=== PATIENT | female | born 1990 | race African-American/Black ===

== ENCOUNTER 2020-02-04 21:12 | Observation (INO) | payer OTHER, SELFPAY ==
--- NOTE | 2020-02-05 08:25 | PM.OBTRLD ---
OB - Triage/Final Diagnosis Final Diagnosis (1) False labor: Code(s): O47.9 - False labor, unspecified Status: Acute
== END 2020-02-04 22:15 | disposition home or self-care (01) ==
PROVIDERS: Admitting Provider Obstetrics & Gynecology; Visit Provider Obstetrics & Gynecology
DX: O47.1 False labor at or after 37 completed weeks of gestation (principal); Z3A.37 37 weeks gestation of pregnancy
CPT/HCPCS: G0378; G0379

== ENCOUNTER 2020-02-05 08:22 | Observation (INO) | payer OTHER, SELFPAY ==
[2020-02-05 08:30] VITALS: BMI 33.7
[2020-02-05 09:46] VITALS: BP 109/66; PULSE 85
--- NOTE | 2020-02-05 10:05 | OBADM ---
This patient, Ofelia Collier, admitted to the OB room Labor/Delivery/Recovery 105 for observation. Patient/family oriented to hospital policies and general routines including ID bracelet, bed and alarms, visiting hours, pain management, procedures, bathroom and other care routines, personal items, smoking policy, room service/diet, and visiting hours. Patient/Family are encouraged to report perceived risks to care and to ask questions if they do not understand what they are told or what they should do.
--- NOTE | 2020-02-05 16:03 | PM.OBTRLD ---
OB - Triage/Final Diagnosis Evaluation Vital signs: Vital Signs - 24 hr 02/05/20 09:46 Pulse Rate 85 Blood Pressure 109/66 Final Diagnosis (1) False labor: Code(s): O47.9 - False labor, unspecified Status: Acute
== END 2020-02-05 10:20 | disposition home or self-care (01) ==
PROVIDERS: Admitting Provider Obstetrics & Gynecology; Visit Provider Obstetrics & Gynecology
DX: O47.1 False labor at or after 37 completed weeks of gestation (principal); Z3A.37 37 weeks gestation of pregnancy
CPT/HCPCS: G0378; G0379

== ENCOUNTER 2020-02-06 06:00 | Inpatient (IN) | payer OTHER, SELFPAY ==
[2020-02-06] VITALS (12 sets, daily range): BP systolic 113–124; BP diastolic 62–82; PULSE 68–122; RESP 16–17; TEMP 36.7; O2SAT 100; BMI 33.7
[2020-02-06] MEDS: LACTATED RINGERS 1,000 ML 125 ML IV CONT ×2 (06:23→06:35)
[2020-02-06 06:24] LABS: Basophils Percent Auto 0.3 % (0.2-1.2); Eosinophils Percent Auto 0.1 % (0-4.4); Hematocrit 35.6 % (37.0-47.0); Hemoglobin 11.8 g/dL (12.0-15.0); Immature Granulocyte Absolute 0.04 K/mm3 (0.00-0.031); Immature Granulocyte Percent A 0.5 % (0-0.5); Lymphocytes Absolute Auto 2.18 K/mm3 (0.9-3.2); Lymphocytes Percent Auto 28.8 % (18.3-44.2); Mean Corpuscular HGB Conc 33.1 g/dl (32-36); Mean Corpuscular Hemoglobin 27.5 pg (26-34); Mean Platelet Volume 12.2 fl (7.4-10.4); Monocytes Absolute Auto 0.8 K/mm3 (0.1-0.6); Neutrophils Absolute Auto 4.6 K/mm3 (1.3-6.7); Neutrophils Percent Auto 60.3 % (45.5-73.1); Platelet Count Result 150 k/mm3 (150-375); Red Blood Count 4.29 M/mm3 (4.2-5.4); Red Cell Distribution Width 14.1 % (11.5-14.5); White Blood Count 7.6 K/mm3 (4.5-10.0)
--- NOTE | 2020-02-06 06:30 | LDADM ---
This patient, Ofelia Collier, was admitted to Labor/Delivery/Recovery 105 on 02/06/20 at 06:00. Plans for labor, pain management and were discussed with patient. Patient/family oriented to hospital policies and general routines including ID bracelet, bed and alarms, visiting hours, pain management, procedures, bathroom and other care routines, personal items, smoking policy, room service/diet and guest tray routines, infant security routines, call light, and visiting hours. Patient/Family are encouraged to report perceived risks to care and to ask questions if they do not understand what they are told or what they should do. See OBIX for further documentation.
[2020-02-06 06:57] LABS: Rapid Plasma Reagin Non-Reactive (NonReactive)
[2020-02-06] MEDS: IBUPROFEN 600 MG TABLET PO ×2 (08:04→20:49)
--- NOTE | 2020-02-06 10:09 | OBPPTRN ---
Patient transferred to post room # via wheelchair. Oriented to unit, room, information board, rooming in, admission packet and security measures. Patient verbalizes understanding.
--- NOTE | 2020-02-06 10:58 | OP_ITS ---
DATE OF PROCEDURE: 02/06/2020 PROCEDURE: Normal spontaneous vaginal delivery. PRE-DELIVERY DIAGNOSES: 1. Thirty eight-week term gestation. 2. Spontaneous rupture of membranes. 3. Active labor. POST-DELIVERY DIAGNOSES: 1. Thirty eight-week term gestation. 2. Spontaneous rupture of membranes. 3. Active labor. 4. Normal spontaneous vaginal delivery. ANESTHESIA: None. ESTIMATED BLOOD LOSS: 200mls. FINDINGS: 1. Single live female born on February 06, 2018, at 06:52 a.m. Weight 6 pounds 6 ounces, 9 and 9. 2. First-degree laceration, no repair needed, hemostatic. COMPLICATIONS: None apparent. BRIEF HISTORY: A 29-year-old G3, P2, initially presented to Labor and Delivery with reports of leaking of fluid since 05:30 this morning and contractions increasing in frequency and intensity. DESCRIPTION OF PROCEDURE: Once the patient was noted to be complete, the labor bed was broken down and the patient's legs were placed in stirrups for support with maternal efforts and contractions, the presented in OA position. The head was delivered. No nuchal cord was noted and then, the anterior shoulder and the posterior shoulders were delivered without incident followed by the rest of the body. Delayed cord clamping of approximately 1 minute was performed after the cord was clamped and cut, the was passed off to the mother. Cord gases were collected. Placenta was delivered. Fundal massage applied. The fundus was noted to be firm. Bleeding noted to be minimal. Exam performed to identify any lacerations. A first-degree laceration was noted. Perineal laceration was noted. Hemostasis obtained by pressure. The patient tolerated the procedure well. All instrument and sponge counts were correct at the end of the procedure and the patient is resting in the labor room. D I MT: Mandi EDUARDO
--- NOTE | 2020-02-06 11:13 | HP_ITS ---
DATE OF SERVICE: 02/06/2020 CHIEF COMPLAINT: Leaking of fluid and contractions. HISTORY OF PRESENT ILLNESS: A 29-year-old, G3, P2, at 38 weeks and 0 days gestation, initially presented to Labor and Delivery with reports of leaking of fluid since about 5:30 this morning with contractions as well. Contractions are frequent and painful. Otherwise, she denies any headaches, blurred vision, nausea, vomiting, diarrhea, constipation, dysuria, vaginal irritation. PAST MEDICAL HISTORY: None. PAST SURGICAL HISTORY: None. FAMILY HISTORY: Noncontributory. MEDICATIONS: vitamins. ALLERGIES: NO KNOWN DRUG ALLERGIES. OBSTETRICAL HISTORY: G3, P2 with 2 previous vaginal deliveries. REVIEW OF SYSTEMS: 10-point review of systems completed. Pertinent positives and negatives as per the HPI. PHYSICAL EXAMINATION: GENERAL: Visibly uncomfortable with her contractions, otherwise alert and oriented x3. PSYCHIATRIC: Appropriate mood and affect. RESPIRATORY: Nonlabored. CARDIOVASCULAR: Regular rate. ABDOMEN: Gravid, soft. CERVICAL: Initially about 4 cm when presenting to triage, now she is complete dilation. REVIEW OF INVESTIGATIONS: GBS negative. ASSESSMENT: 1. Thirty-eight week term gestation. 2. Spontaneous rupture of membranes. 3. Active labor. PLAN: Admit to Labor and Delivery and anticipate vaginal delivery. D I MT: Mandi
--- NOTE | 2020-02-06 12:05 | PC.NURSE ---
Consulted with patient, Mother reports this is third child to breastfeed. Mother states is easily awoken and eager to feed. Mother denies difficulties or discomfort with feeding. Reviewed feeding cues, frequencies, duration of feedings, feeding elimination flow sheet, and signs of adequate intake. Reviewed positioning/alignment, holding breast, signs of a correct latch, effective nursing and suck swallow ratio. Mother reports infant was able to maintain latch without discomfort to mother. Nipple care reviewed. Instructed mother to call out for RN assistance if she is unable to latch for feeding or she has discomfort with nursing. Instructed feeding should be initiated three hours from start of last feeding or if feeding cues are noted before. Mother voiced understanding of information shared. Reviewed transition to breast milk, signs of adequate intake, and engorgement/relief. Instructed to call ICP if intake/output less than required. Reviewed regular medications mother is taking. Information provided per Aaliyah. Reviewed community resources on the [facility] website and in the Mom/Baby guide. Information on outpatient services provided. Mother has no further questions at this time.
[2020-02-06] MEDS: ACETAMINOPHEN 325 MG TABLET 650 MG PO (13:27)
[2020-02-07 05:58] LABS: Hematocrit 36.2 % (37.0-47.0); Hemoglobin 11.8 g/dL (12.0-15.0)
--- NOTE | 2020-02-07 07:55 | PC.NURSE ---
PT introductions made and plan of care discussed per post , pain management, breast feeding, daily care activities and pending discharge to home. PT verbalized understanding of such care.
--- NOTE | 2020-02-07 08:01 | PM.DS ---
DS: Diagnosis Discharge Diagnosis (1) (normal spontaneous vaginal delivery): Code(s): O80 - Encounter for full-term uncomplicated delivery Status: Acute DS: Summary Hospital Course Reason for hospitalization: Active labor Hospital Course: Admitted for onset of labor and spontaneous rupture of membranes. Delivery was uncomplicated. Progressed as expected . Pain is well controlled, lochia decreasing. No issues Status at Discharge Overall status at discharge: patient is progressing back to baseline Time Spent with Patient Time attestation: Total time spent providing and/or coordinating discharge services: Exam Const: General: comfortable and no acute distress Resp: Effort & Inspection: normal respiratory effort Cardio: Rate: regular rate GI: Inspection: non-distended GI Palp: Yes Soft to palpation, No Tenderness to palpation present (GI) and No Guarding due to palpation present (GI) Psych: Appearance: grossly normal Mental Status: mental status grossly normal Speech and movement: Normal speech and movement present Thought content: Yes Normal thought content present DS: Data Data Completed and Pending Labs on day of discharge: Labs from last 24 hours 02/07/20 05:23 Hgb 11.8 L Hct 36.2 L Discharge Plan Discharge Attending physician on discharge: Kevin Chinchilla Discharging Clinician: Kevin Chinchilla Patient Disposition: Home, Self-Care Activity: as tolerated Diet: regular Patient Instructions: Antibiotic Form Stand Alone Forms: General Discharge Information Follow-up/Referrals: Kevin Chinchilla DO [Physician] - Discharge Medications: New docusate sodium 100 mg Capsule 100 mg PO BID PRN (Reason: Constipation) Qty: 60 RF: 0 ibuprofen 600 mg Tablet 600 mg PO Q6H PRN (Reason: Cramping) Qty: 90 RF: 0 Continued PNV cmb#95-ferrous fumarate-FA [] 28 mg iron- 800 mcg Tablet 1 tablet PO DAILY RF: 0 Date of admission: 02/06/20 06:00 Primary Care Provider: UNKNOWN,DOCTOR Admitting Provider: Kevin Chinchilla Attending physician on admission: Kevin Chinchilla
[2020-02-07 10:30] VITALS: BP 112/73; PULSE 82; RESP 18; TEMP 37.3; O2SAT 100
[2020-02-07] MEDS: MULTIVIT/MIN/PREN/FOL AC/IRON TABLET 1 TAB PO (10:35)
[2020-02-07] MEDS: IBUPROFEN 600 MG TABLET PO (10:35)
[2020-02-07] MEDS: DOCUSATE SODIUM 100 MG CAPSULE PO (10:36)
--- NOTE | 2020-02-07 12:45 | PC.NURSE ---
PT received discharge instructions per protocol and verbalized understanding of such care.
--- NOTE | 2020-02-07 13:25 | PC.NURSE ---
PT discharged to home ambulatory accompanied by sister and and taken to waiting car. Follow up appts confirmed
== END 2020-02-07 13:25 | disposition home or self-care (01) | DRG 560 ==
LOC: ANHLDR 06:11 → ANHOB2 10:15
PROVIDERS: Admitting Provider Obstetrics & Gynecology; Visit Provider Obstetrics & Gynecology
DX: O70.0 First degree perineal laceration during delivery (principal); Z3A.38 38 weeks gestation of pregnancy; Z37.0 Single live birth; Z23 Encounter for immunization
CPT/HCPCS: 36415; 85014; 85018; 85025; 86592; 86850; 86900; 86901; A9270; J2590; J2795; J7120

== ENCOUNTER 2021-12-26 09:25 | Outpatient (CLI) | payer OTHER, SELFPAY ==
--- NOTE | ~2021-12-26 | US_ITS ---
EXAMINATION: US OB <= 14 weeks fetus DATE: 12/26/2021 10:28 INDICATION: Assess dating and viability of first trimester . TECHNIQUE: Real-time pelvic ultrasound utilizing transabdominal probe was performed. The nuha guillaume radiologist was not present for the study. COMPARISON: None. FINDINGS: The uterus measures 14.0 x 8.0 x 9.7 cm. There is an intrauterine gestational sac. A yolk sac and fe nestor pole are identified. The crown rump length measures 3.8 cm, which correlates with an estimated ge stational age of 10 weeks and 5 days. heart motion is identified measuring 140 beats per minute (bpm) by M-mode Doppler. The right ovary measures 3.3 x 1.3 x 1.4 cm. The left ovary measures 4.1 x 1.9 x 1.8 cm. 1 cm corpus luteum cyst in the left ovary. There is no free fluid in the pelvis. IMPRESSION: 1. Single living fetus with heart rate of 140 bpm. 2. Gestational age by ultrasound of 10 weeks 5 day(s) +/- 7 day(s) with ultrasound estimated date of delivery (RAKESH) of 07/19/2022. Reviewed, dictated and finalized at location A. [employer] PROJECT MANAGER IMPRESSION: 1. Single living fetus with heart rate of 140 bpm. 2. Gestational age by ultrasound of 10 weeks 5 day(s) +/- 7 day(s) with ultras ound estimated date of delivery (RAKESH) of 07/19/2022.
== END 2021-12-26 09:26 | disposition home or self-care (01) ==
LOC: ANHIMG 09:27
PROVIDERS: Visit Provider Obstetrics & Gynecology
DX: Z36.9 Encounter for antenatal screening, unspecified (principal); Z3A.10 10 weeks gestation of pregnancy
CPT/HCPCS: 76801

== ENCOUNTER 2022-02-28 15:44 | Outpatient (CLI) | payer OTHER, SELFPAY ==
--- NOTE | ~2022-02-28 | US_ITS ---
EXAMINATION: US OB /maternal detail EXAM DATE: 02/28/2022 16:46 INDICATION: anatomy. 2nd trimester. TECHNIQUE: Pelvic obstetrical transabdominal sonogram was performed by a technologist. There are mu ltiple grayscale and Doppler images available for interpretation. FINDINGS: There is a single fetus identified in breech presentation with a heart rate of 157 beats pe r minute. The placenta is located in the posterior position, and there may be an anterior myometrial contraction captured on some of the images. Placental margin to internal cervical os distance is 2.3 cm. There is no sonographic evidence of retroplacental hemorrhage identified. There is subjectively expected amount of amniotic fluid. BIOMETRIC DATA: Biparietal diameter (BPD): 4.4 cm ----------------> 19 weeks 1 day. Head circumference (HC): 17.4 cm ----------------> 19 weeks 6 days. Abdominal circumference (AC): 14.5 cm ----------> 19 weeks 6 days. Femur length (FL): 3.2 cm --------------------------> 20 weeks 0 days. These measurements are concordant. HC/AC ratio is 1.20 (The 5th -- 95th percentile range is 1.08-1.26. Estimated weight is 318 g +/- 48 g. This is the 46th percentile when the currently reported cl inical gestation age 19 weeks 6 days, clinical estimated date of delivery (RAKESH-OPE) 07/19 is used. Fet al estimated gestational age based on measurements from this exam is 19 weeks 5 days, with an estimat ed date of delivery (RAKESH-AUA) 07/20. ANATOMIC SURVEY: The following anatomy is identified and is sonographically normal in appearance: Cerebral ventricles Cavum septum pellucidum Cerebellum Cisterna magna Nuchal fold CTL-spine Four-chamber heart Cardiac outflow tracts Diaphragm Stomach Kidneys Bladder Three-vessel cord Cord insertion Extremities Nose/lips IMPRESSION: 1. Single fetus in breech presentation with heart rate 157 beats per minute. 2. Estimated weight of 318 grams, 46 percentile using the currently reported clinical gestatio n age of 19 weeks 6 days, RAKESH(OPE) 07/19. 3. Normal anatomic survey. Reviewed, dictated and finalized at location A. IMPRESSION: 1. Single fetus in breech presentation with heart rate 157 beats per minute. 2. Estimated weight of 318 grams, 46 percentile using the currently repo rted clinical gestation age of 19 weeks 6 days, RAKESH(OPE) 07/19. 3. Normal anatomic survey.
== END 2022-02-28 15:45 | disposition home or self-care (01) ==
LOC: ANHIMG 15:45
PROVIDERS: Visit Provider Obstetrics & Gynecology
DX: Z36.3 Encounter for antenatal screening for malformations (principal); Z3A.00 Weeks of gestation of pregnancy not specified
CPT/HCPCS: 76805

== ENCOUNTER 2022-04-30 22:27 | Observation (INO) | payer OTHER, SELFPAY ==
--- NOTE | 2022-04-30 22:50 | PC.NURSE ---
PT was sent from ER for back pain. she was not able to walk to bathroom due to back pain. Urine sample obtained, assisted pt to bed via wheelchair. pt states she was having back pain for few days but after she went to [employer] earlier today, back pain got more intense and right leg started to have pain. bilateral pedal pulse was palpated equally and negative Marilyn's sign. pt states she lifted few boxes at the [employer]. abdomen soft and no contractions noted. right side SVA tenderness was noted. encouraged PO hydration and will contact Dr. Huang with UA result.
[2022-04-30 22:53] VITALS: TEMP 36.3
[2022-04-30 22:57] VITALS: BP 114/65; PULSE 97
[2022-04-30 23:00] VITALS: BP 123/65; PULSE 98
[2022-04-30 23:07] VITALS: BMI 36.3
[2022-04-30 23:15] VITALS: BP 108/63; PULSE 93
[2022-04-30 23:20] LABS: Appearance Urine Clear (Clear); Bilirubin Urine Negative (Negative); Blood Urine Negative (Negative); Color Urine Yellow (Yellow); Glucose Urine UA Negative (Negative); Ketones Urine Trace mg/dL (Negative); Leukocyte Esterase Ur Negative LEU/UL (NEGATIVE); Nitrate Urine Negative (Negative); Protein Urine Negative (Negative); Specific Grav Ur >= 1.030 (1.001-1.035); Urobilinogen Urine 0.2 mg/dL (<2.0)
[2022-04-30 23:29] LABS: Bacteria Urine Trace /hpf; Mucus Urine Rare /lpf; Squamous Epithelial Cell Urine Many /hpf (Few)
--- NOTE | 2022-04-30 23:30 | PC.NURSE ---
called Dr. Huang and notified pt admission for back pain. reported positive CVA tenderness on right side, Negative UA result. made aware that pt states feels better after PO hydration but still has some uncomfortable back pain. Flexeril order was received. will continue to monitor.
[2022-04-30 23:32] LABS: Add Urine Microscopic? YES
[2022-04-30] MEDS: CYCLOBENZAPRINE HCL 10 MG TABLET PO (23:43)
--- NOTE | 2022-05-01 00:22 | PC.NURSE ---
pt states she feels better after medication and able to move right leg. called Dr. Huang reported status. discharge order received.
--- NOTE | 2022-05-25 11:41 | P.PNOB_ITS ---
OB - Triage/Final Diagnosis Visit Information Comments/Additional reasons for admission: I have assessed the risk for this patient, Ofelia Collier, and determined that she would benefit from observation care. Evaluation Laboratory results: Laboratory Tests 04/30/22 22:59 Urine Color Yellow Urine Appearance Clear Urine pH 6.0 Ur Specific [place] >= 1.030 Urine Protein Negative Urine Glucose (UA) Negative Urine Ketones Trace Ur Blood (Man) Negative Urine Nitrate Negative Urine Bilirubin Negative Urine Urobilinogen 0.2 Ur Leukocyte Esterase Negative Urine RBC 6-10 H Urine WBC 10-15 H Ur Squamous Epith Cells Many H Urine Bacteria Trace Urine Mucus Rare Final Diagnosis (1) Back pain affecting : Code(s): O99.891 - Other specified diseases and conditions complicating ; M54.9 - Dorsalgia, unspecified Status: Acute
== END 2022-05-01 00:35 | disposition home or self-care (01) ==
PROVIDERS: Admitting Provider Student in an Organized Health Care Education/Training Program; Visit Provider Student in an Organized Health Care Education/Training Program
DX: O26.899 Other specified pregnancy related conditions, unspecified trimester (principal); M54.50 Low back pain, unspecified; Z3A.00 Weeks of gestation of pregnancy not specified
CPT/HCPCS: 81001; 87086; 87088; A9270; G0378; G0379

== ENCOUNTER 2022-05-17 17:52 | Observation (INO) | payer OTHER, SELFPAY ==
[2022-05-17 18:01] VITALS: BP 127/65; PULSE 156
--- NOTE | 2022-05-17 18:01 | PC.NURSE ---
Repeat BP 127/65
[2022-05-17 18:04] VITALS: PULSE 95; O2SAT 100
--- NOTE | 2022-05-17 18:06 | PC.NURSE ---
1751- Pt brought in after having lost consciousness and fell in parking lot. Visitors who saw the pt fall reported she started having seizure like activity. When OB arrived in the parking lot, pt was laying on her right side and unresponsive. ED personnel were also present and a sternal rub caused pt to open her eyes and she mumbled. Eyelids noted to be fluttering. Carotid pulse was regular and strong. Pt placed on sheet and lifted onto stretcher and brought to OB. Dr. Arana was still on the unit and came into room 120 with us. 1753- monitor applied- FHT's 150. Pt breathing rapidly and difficult to trace heart rate due to rapid abdominal movement with respirations. Dannie Harrison RN talking with pt who now has her eyes open and is responding. Pt denies hx of seizure disorder. C/O chest discomfort. 1754- Initial BP 122/62 P 100; O2 sat 100%. Pt states she had been having light headedness, dizziness, SOB, and a headache that she was coming in to be evaluated for. 1756- 18 ga jelco placed in left forearm by Keira Ramos RN; blood work drawn. 1758- Dr. Huang called and informed of how this pt presented at approx 31 wks gestation and requested her to come now to evaluate pt. Since we have FHT's, Dr. Huang wants pt taken immediately to ED for evaluation. 1800- Called ED charge nurse and informed her Dr. Huang wants an immediate bed in the ED for the pt to be evaluated. Pt to be brought to room 112. 1805- Switched to portable monitor and pt taken to ED per stretcher. Dannie Sky RN staying with pt.
--- NOTE | 2022-05-17 18:07 | PC.NURSE ---
See V# [id number] for additional documentation in the ED.
--- NOTE | 2022-05-17 19:23 | WPDCN ---
Assessment and Plan Assessment and plan (1) Syncopal episodes: Code(s): R55 - Syncope and collapse Status: Acute Assessment and Plan: Work up to be done by ED Defer further management to ED physician at this time (2) Witnessed seizure-like activity: Code(s): R56.9 - Unspecified convulsions Status: Acute Assessment and Plan: see above (3) 31 weeks gestation of : Code(s): Z3A.31 - 31 weeks gestation of Status: Acute Assessment and Plan: From an obstetric standpoint, patient currently stable Reassuring status Contractions spaced out on toco BP and rest of vitals WNL Continuous EFM and toco for now Plan Plan discussed with Dr. Vásquez Patient will require telemetry, neurology work up, as well as continuous monitoring for further evaluation Combined services unavailable at [place] Plan is to transfer to [facility] for these services Patient made aware of plan All questions and concerns addressed Reassurance provided HPI Data of Consult Date/Time: 05/17/22 19:23 Requesting Physician: Brigitte Huang MD Primary Care Provider: CHANNEL ROUGHER PHYSICIAN Consult Narrative Narrative: Ofelia Collier is a 31 year old female LMP 10/12/2021 currently 31w gestation with RAKESH 07/19/22 who presented to ED following a witnessed syncopal event. Patient is dated by LMP c/w US on 12/26/21 at 10w gestation. has been uncomplicated thus far. Denies history of seizure disorder. Patient reports decreased appetite for past few days and not feeling her best. Reports decrease PO intake. Today, she reported dizziness, lightheadedness, as well as a headache and chest pain. She also reported SOB that worsened throughout the day, prompting patient to drive herself to the hospital for further evaluation. Upon exiting her car, patient states that she remembers trying to walk towards the hospital before everything went black. Patient's fall and subsequent seizure activity was witnessed by two hospital visitors who were also in the parking lot. It appears that patient fell backwards and did not fall onto abdomen. L&D as well as ED staff responded to incident. Patient was taken to L&D and then subsequently transported to the ED for further evaluation. Upon my arrival, patient was awake, however, appropriately anxious. She reports a headache and occipital pain and spots in her vision. She also reports chest pain and persistent SOB. She reports lower abdominal/pelvic pain for past few days as well as occasional contractions. Denies any vaginal bleeding or leakage of fluid. Reports good movement. Review of Systems Review of Systems: All systems reviewed & are unremarkable except as noted in HPI and below Constitutional: Constitutional: Reports as per HPI, Reports no additional constitutional complaints and Reports poor appetite Eyes: Eyes: Reports as per HPI, Reports no additional eye complaints and Reports floaters ENT: Reports system reviewed and no additional complaints, except as documented, Reports as per HPI, Reports dizziness and Reports headache(s) Cardiovascular: Cardiovascular: Reports as per HPI, Reports no additional cardiovascular complaints, Reports chest pain, Reports syncope, Reports lightheadedness and Reports dyspnea Respiratory: Respiratory: Reports as per HPI, Reports no additional respiratory complaints and Reports dyspnea Gastrointestinal: Gastrointestinal: Reports as per HPI and Reports no additional gastrointestinal complaints Genitourinary: Genitourinary: Reports no additional female genitourinary complaints, Reports as per HPI and Reports pelvic pain Musculoskeletal: Musculoskeletal: Reports no additional musculoskeletal complaints and Reports as per HPI Integumentary/Breasts: Skin/Breast: Reports system reviewed and no additional complaints, except as docu and Reports as per HPI Neurologic: Reports system reviewed a
== END 2022-05-17 18:08 ==
PROVIDERS: Admitting Provider Student in an Organized Health Care Education/Training Program; Visit Provider Student in an Organized Health Care Education/Training Program
DX: O26.893 Other specified pregnancy related conditions, third trimester (principal); R55 Syncope and collapse; R56.9 Unspecified convulsions; Z3A.31 31 weeks gestation of pregnancy
CPT/HCPCS: 99199

== ENCOUNTER 2022-05-17 18:14 | Emergency (ER) | payer OTHER, SELFPAY ==
[2022-05-17] VITALS (9 sets, daily range): BP systolic 105–135; BP diastolic 58–78; PULSE 89–92; RESP 16; TEMP 36.2; O2SAT 91–99
--- NOTE | ~2022-05-17 | CT_ITS ---
EXAMINATION: CT brain wo con DATE: 05/17/2022 19:35 INDICATION: syncope, head trauma . TECHNIQUE: Computed tomography (CT) of the head was performed without intravenous contrast. The mA wa s adjusted according to patient size. Iterative reconstruction technique was employed. The dose-lengt h product was 529.67 mGy-cm. COMPARISON: None FINDINGS: No acute intracranial hemorrhage or extra-axial fluid collection. No hydrocephalus, mass, or herniation. No acute ischemic infarct. Unremarkable dural venous sinus attenuation. No acute osseous abnormality. The aerated spaces are clear. IMPRESSION: No acute intracranial process. Reviewed, dictated and finalized at location K.
--- NOTE | ~2022-05-17 | CT_ITS ---
EXAMINATION: CTA chest PE protocol DATE: 05/17/2022 19:36 INDICATION: syncope, chest pain, dyspnea TECHNIQUE: Computed tomography angiography (CTA) of the chest was performed with 100 mL Omnipaque-350 intravenous contrast timed to evaluate the pulmonary arteries. Coronal maximum intensity projection 3D-reconstructions were created by the technologist. The dose-length product (DLP) was 745.58 mGy-cm. Automated exposure control and iterative reconstruction technique were employed. COMPARISON: None. FINDINGS: Study quality: Degraded by late contrast phase, mild motion, and beam hardening such that subsegmenta l and non-occlusive segmental emboli could be missed. Pulmonary arteries: No pulmonary emboli detected. Thoracic aorta: Normal. Lung parenchyma and airways: Clear. Thoracic inlet, axillae and chest wall: Unremarkable. Mediastinum: Normal. Heart and pericardium: Normal. Coronary artery calcifications: Absent. Pleura: Unremarkable. Upper abdomen: No significant finding. Bones: No acute osseous finding. IMPRESSION: Exam limited as described above. Within those constraints, no central or occlusive segmental pulmonar y embolus is detected. Reviewed, dictated and finalized at location K. IMPRESSION: Exam limited as described above. Within those constraints, no central or occlus matt segmental pulmonary embolus is detected.
--- NOTE | 2022-05-17 18:17 | ECG_ITS ---
Measurements Intervals [place] Rate: 89 P: 65 MS: 177 QRS: 60 QRSD: 89 T: 16 QT: 341 QTc: 417 Interpretive Statements SINUS RHYTHM NORMAL ELECTROCARDIOGRAM NO PREVIOUS ECG AVAILABLE FOR COMPARISON Electronically Signed On 05-19-2022 16:00:50 CDT by Roni Gonzalez M.D.
--- NOTE | 2022-05-17 18:28 | ED.SYNCOPE ---
HPI - Syncope General Chief Complaint: Syncope Stated Complaint: Seizure Time Seen by Provider: 05/17/22 18:21 History of Present Illness HPI narrative: Patient is a 31-year-old female , currently 31 weeks , presenting to the emergency department for evaluation following a syncopal event with witnessed seizure activity. Patient reportedly has been having chest pain, shortness of breath, lightheadedness throughout the day today. She follows with Dr. Huang for this current , was presenting to OB labor and delivery for evaluation when she was witnessed to have a syncopal episode in the parking lot with seizure activity. Of note, one of our ER nurses responded to this outside, there were bystanders present, patient with generalized tonic-clonic activity. No urinary incontinence or tongue biting. Patient awakened, no prolonged confusion. Patient currently reporting headache pain, floaters in her visual field, frontal chest pain, shortness of breath, lower pelvic pain. Patient was initially taken for evaluation to labor and delivery where she was found to have no vaginal bleeding, no contraction-like pain, patient was placed on tocodynamometer monitoring and then transported to the emergency department for medical work-up and further evaluation. Related Data Home Medications Medication Instructions Recorded Confirmed prenat.vits,zack,[id number] 1 tablet PO DAILY 03/17/22 Allergies Allergy/AdvReac Type Severity Reaction Status Date / Time No Known Allergies Allergy Verified 05/17/22 18:16 Review of Systems Review of Systems: CONSTITUTIONAL: Denies fever, chills, or sweats. EYES: Reports visual floaters earlier in the day ENT: Denies rhinorrhea, congestion, sore throat, or otalgia. CARDIOVASCULAR: Reports chest pain without palpitations, denies leg edema RESPIRATORY: Denies cough, reports dyspnea GASTROINTESTINAL: Reports pelvic pain without upper abdominal pain, denies nausea or vomiting GENITOURINARY: Denies dysuria or hematuria. SKIN: Denies rash or itching. MUSCULOSKELETAL: Denies back pain, joint pain, or myalgia. NEUROLOGIC: Reports headache without focal weakness or numbness PMFSH Past Medical History Medical History Elective x1 Vaginal delivery x3 Surgical History Surgical History No pertinent past surgical history Family History Family History Sibling Asthma Grandparent Diabetes mellitus Hypertension Mother Hypertension Heart disease Other No pertinent family history Social History Social History Smoking status: Never smoker Substance use: never Gender identity (if verbalized by the patient): Female Spiritual care concerns: No Agree to blood products: Yes Course Vital Signs Vital signs: Vital Signs Temperature 36.2 C L 05/17/22 18:16 Pulse Rate 89 05/17/22 18:16 Respiratory Rate 16 05/17/22 18:16 Blood Pressure 129/68 05/17/22 18:16 Pulse Oximetry 98 05/17/22 18:16 Temperature 36.2 C L 05/17/22 18:16 Pulse Rate 89 05/17/22 18:45 Respiratory Rate 16 05/17/22 18:45 Blood Pressure 117/69 05/17/22 19:01 Pulse Oximetry 95 05/17/22 19:01 MDM - Syncope MDM Narrative Medical decision making narrative: Patient presenting for evaluation following witnessed syncopal episode versus seizure-like activity in the parking lot of the hospital. Patient initially taken to OB triage and then transported here for evaluation. At time of assessment, patient with multiple complaints of headache pain, chest pain, pelvic pain. Patient is on toco monitor with irritability type contractions. No vaginal bleeding or loss of fluids. [employer] Dr. Huang came to the emergency department to evaluate the patient, tiesha
[2022-05-17 18:48] LABS: Basophils Percent Auto 0.1 % (0.2-1.2); Eosinophils Percent Auto 0.4 % (0-4.4); Hematocrit 31.3 % (37.0-47.0); Hemoglobin 10.4 g/dL (12.0-15.0); Immature Granulocyte Absolute 0.04 K/mm3 (0.00-0.031); Immature Granulocyte Percent A 0.4 % (0-0.5); Lymphocytes Absolute Auto 2.67 K/mm3 (0.9-3.2); Lymphocytes Percent Auto 28.9 % (18.3-44.2); Mean Corpuscular HGB Conc 33.2 g/dl (32-36); Mean Corpuscular Hemoglobin 27.9 pg (26-34); Mean Corpuscular Volume 83.9 fl (80-100); Mean Platelet Volume 12.3 fl (7.4-10.4); Monocytes Absolute Auto 0.8 K/mm3 (0.1-0.6); Monocytes Percent Auto 9.1 % (2.6-8.5); Neutrophils Absolute Auto 5.7 K/mm3 (1.3-6.7); Neutrophils Percent Auto 61.1 % (45.5-73.1); Platelet Count Result 178 k/mm3 (150-375); Red Blood Count 3.73 M/mm3 (4.2-5.4); Red Cell Distribution Width 11.9 % (11.5-14.5); White Blood Count 9.3 K/mm3 (4.5-10.0)
[2022-05-17 18:59] LABS: Glucose Point of Care 79 mg/dl (65-105)
[2022-05-17 19:06] LABS: Alanine Aminotransferase 10 U/L (6-35); Albumin Level 3.6 g/dL (3.5-5.1); Alkaline Phosphatase 80 U/L (38-126); Anion Gap 6 mmol/L (8-16); Aspartate Amino Transferase 18 U/L (14-36); Bilirubin,Total 0.2 mg/dL (0.2-1.3); Blood Urea Nitrogen 6 mg/dL (7-17); Calcium 8.9 mg/dL (8.4-10.2); Carbon Dioxide 23 mmol/L (22-30); Chloride 109 mmol/L (98-107); Estimated CRCL calculation 168 ml/min; Estimated Glomerular Filt Rate > 60; Glucose 79 mg/dL (65-110); Magnesium 1.7 mg/dL (1.6-2.3); Potassium 3.7 mmol/L (3.4-5.0); Sodium 138 mmol/L (137-145); Uric Acid 2.9 mg/dL (2.5-7.5)
[2022-05-17] MEDS: LACTATED RINGERS 1,000 ML 999 ML IV CONT (19:07)
[2022-05-17 19:11] LABS: INR 1.1; Partial Thromboplastin Time 25.2 SECONDS (22.3-36.8); Partial Thromboplastin Time 25.7 SECONDS (22.3-36.8); Prothrombin Time 14.2 Seconds (11.1-14.7)
[2022-05-17 19:12] LABS: INR 1.1
[2022-05-17 19:16] LABS: NT Pro B Type Natriuretic Pept 26 pg/mL (5-100); Troponin I < 0.012 ng/mL (0.000-0.034)
[2022-05-17 19:36] LABS: Lactate Dehydrogenase 449 U/L (313-618)
[2022-05-17 20:05] LABS: Appearance Urine Slightly Cloudy (Clear); Bilirubin Urine Negative (Negative); Blood Urine Negative (Negative); Glucose Urine UA Negative (Negative); Ketones Urine Negative (Negative); Leukocyte Esterase Ur Negative LEU/UL (Negative); Nitrate Urine Negative (Negative); Protein Urine Negative (Negative); Urobilinogen Urine 0.2 mg/dL (<2.0)
[2022-05-17 20:08] LABS: Add Urine Microscopic? YES; Color Urine Light Yellow (Yellow)
[2022-05-17 20:14] LABS: Bacteria Urine Trace /hpf; Mucus Urine Rare /lpf; Squamous Epithelial Cell Urine Many /hpf (Few)
--- NOTE | 2022-05-17 21:57 | PC.NURSE ---
VELMA from [facility] Dr. Ace for 1 gram Tylenol IV
[2022-05-17] MEDS: MAGNESIUM SULF 4 GM/WATER100ML 4 GM/100 ML BAG IVPB (22:27)
[2022-05-17] MEDS: MAGNESIUM SULF 2 GM/WATER 50ML 2 GM/50 ML BAG IVPB (23:01)
--- NOTE | 2022-05-17 23:56 | PC.NURSE ---
1900 pt [place] every 1-7 minutes, duration 40-80 seconds, mild, palpates soft [address] off monitor [address] scan 193 pt back on monitor FHR 155 2 pt off monitor to use bathroom 1999 abdomen palpates soft, pt states she is still having mild contractions, TOCO reapplied 2026 Dr Huang at bedside, SVE done, pt closed 2100 pt having uterine irritability, palpates soft 2200 pt [place] 2-3 minutes, duration 50-90 seconds, mild, palpates soft 2300 pt [place] 5-7 minutes, duration 50-80 seconds, mild, palpates soft 2321 EMS arrived to patient room, pt taken off monitors and transferred to ambulance. FHT at this time are 145.
[2022-05-18 00:35] VITALS: BP 105/65; PULSE 78; RESP 18; O2SAT 98
--- NOTE | 2022-05-18 00:35 | PC.NURSE ---
Pt discharged w/ IV magnesium still running so it was not documented as finished in the MAR
== END 2022-05-17 23:20 | disposition short-term general hospital (02) ==
PROVIDERS: Emergency Provider Emergency Medicine
DX: O99.891 Other specified diseases and conditions complicating pregnancy (principal); R55 Syncope and collapse; R56.9 Unspecified convulsions; O99.283 Endocrine, nutritional and metabolic diseases complicating pregnancy, third trimester; E86.0 Dehydration; Z3A.31 31 weeks gestation of pregnancy
CPT/HCPCS: 36415; 70450; 71275; 80053; 81001; 82948; 83615; 83735; 83880; 84484; 84550; 85025; 85380; 85610; 85730; 86850; 86900; 86901; 93005; 96365; 96366; 96375; 99285; J0131; J3475; J7120; Q9967

== ENCOUNTER 2022-07-01 18:37 | Inpatient (IN) | payer OTHER, SELFPAY ==
[2022-07-01] VITALS (37 sets, daily range): BP systolic 81–131; BP diastolic 25–94; PULSE 75–107; TEMP 36.7–36.8; O2SAT 97–100; BMI 36.7
--- NOTE | 2022-07-01 18:37 | LDADM ---
This patient, Ofelia Collier, was admitted to Labor/Delivery/Recovery 105 on 07/01/22 at 18:37. Plans for labor, pain management and were discussed with patient. Patient/family oriented to hospital policies and general routines including ID bracelet, bed and alarms, visiting hours, pain management, procedures, bathroom and other care routines, personal items, smoking policy, room service/diet and guest tray routines, infant security routines, and visiting hours. Patient/Family are encouraged to report perceived risks to care and to ask questions if they do not understand what they are told or what they should do. See OBIX for further documentation.
[2022-07-01] MEDS: LACTATED RINGERS 1,000 ML 125 ML IV CONT (21:54)
--- NOTE | 2022-07-01 22:11 | P.PNAN_ITS ---
Anes - Eval Pre Procedure Procedure: labor epidural Date/Time: 07/01/22 22:11 Surgeon: nestor Preop Diagnosis: pain during labor Pre Op Diagnosis: Contractions Patient Data Age: 31 Gender: F Height: Weight: Last Vital Signs Pulse 95 07/01/22 22:11 BP 122/51 L 07/01/22 22:11 Pulse Ox 100 07/01/22 22:06 Allergies Allergy/AdvReac Type Severity Reaction Status Date / Time No Known Allergies Allergy Verified 06/30/22 15:14 Home Medications Medication Instructions Recorded Confirmed Type prenat.vits,zack,cru-xoba-uwlzm 1 tablet PO DAILY 03/17/22 06/26/22 History ferrous sulfate 325 mg (65 mg 325 mg PO DAILY #90 tabs 05/23/22 06/26/22 Rx iron) tablet Patient hx anesthesia problems: none Family hx anesthesia problems: none Results Review: All pre-operative results and documents have been reviewed as part of the pre- operative evaluation. PMFSH Past Medical History Medical History Elective x1 Vaginal delivery x3 Surgical History Surgical History No pertinent past surgical history Family History Family History Sibling Asthma Grandparent Diabetes mellitus Hypertension Mother Hypertension Heart disease Other No pertinent family history Social History Social History Smoking status: Never smoker Substance use: never Gender identity (if verbalized by the patient): Female Spiritual care concerns: No Agree to blood products: Yes Exam Day of Procedure 07/01/22 22:11
[2022-07-01 22:22] LABS: Basophils Percent Auto 0.1 % (0.2-1.2); Eosinophils Percent Auto 0.4 % (0-4.4); Hematocrit 35.3 % (37.0-47.0); Hemoglobin 11.6 g/dL (12.0-15.0); Immature Granulocyte Absolute 0.04 K/mm3 (0.00-0.031); Immature Granulocyte Percent A 0.5 % (0-0.5); Lymphocytes Absolute Auto 2.42 K/mm3 (0.9-3.2); Lymphocytes Percent Auto 28.7 % (18.3-44.2); Mean Corpuscular HGB Conc 32.9 g/dl (32-36); Mean Corpuscular Hemoglobin 28.2 pg (26-34); Mean Corpuscular Volume 85.7 fl (80-100); Mean Platelet Volume 12.7 fl (7.4-10.4); Monocytes Absolute Auto 0.7 K/mm3 (0.1-0.6); Monocytes Percent Auto 8.8 % (2.6-8.5); Neutrophils Absolute Auto 5.2 K/mm3 (1.3-6.7); Neutrophils Percent Auto 61.5 % (45.5-73.1); Platelet Count Result 151 k/mm3 (150-375); Red Blood Count 4.12 M/mm3 (4.2-5.4); Red Cell Distribution Width 14.1 % (11.5-14.5); White Blood Count 8.4 K/mm3 (4.5-10.0)
[2022-07-02] VITALS (73 sets, daily range): BP systolic 88–128; BP diastolic 39–92; PULSE 62–163; RESP 16–22; TEMP 36.3–36.8; O2SAT 99–100
[2022-07-02] MEDS: LACTATED RINGERS 1,000 ML 125 ML IV CONT (05:55)
[2022-07-02] MEDS: OXYTOCIN 30 UNITS/NS 500 ML 30 UNITS/500 ML BAG IV CONT (08:18)
[2022-07-02] MEDS: ONDANSETRON INJ 4 MG/2 ML VIAL IV PUSH ×2 (09:05→13:50)
[2022-07-02] MEDS: OXYTOCIN 30 UNITS/NS 500 ML 30 UNITS/500 ML BAG 125 UNITS IV CONT (10:10)
--- NOTE | 2022-07-02 10:46 | PM.IMHP ---
H&P: HPI History of Present Illness Date/Time: 07/02/22 10:46 Chief Complaint: Contractions Narrative: Patient is a 31-year-old LMP 10/12/2021 who presented to labor and delivery on the evening of 07/01/2022 at 37 weeks 3 days gestation. RAKESH 07/19/2022. Patient is dated by LMP consistent with ultrasound on 12/26/2021 at 10 weeks gestation. Patient reports onset of contractions approximately 4:30 p.m. Patient reports increased frequency and intensity of contractions. Upon presentation to labor and delivery, patient appeared to be uncomfortable and in early labor. Decision was made to admit patient in labor. Patient denied any vaginal bleeding or leakage of fluid. Reported good movement. Review of Systems Review of Systems: All systems reviewed & are unremarkable except as noted in HPI and below Constitutional: Constitutional: Reports as per HPI, Reports no additional constitutional complaints and Reports poor appetite Eyes: Eyes: Reports as per HPI, Reports no additional eye complaints and Reports floaters ENT: Reports system reviewed and no additional complaints, except as documented, Reports as per HPI, Reports dizziness and Reports headache(s) Cardiovascular: Cardiovascular: Reports as per HPI, Reports no additional cardiovascular complaints, Reports chest pain, Reports syncope, Reports lightheadedness and Reports dyspnea Respiratory: Respiratory: Reports as per HPI, Reports no additional respiratory complaints and Reports dyspnea Gastrointestinal: Gastrointestinal: Reports as per HPI and Reports no additional gastrointestinal complaints Genitourinary: Genitourinary: Reports no additional female genitourinary complaints, Reports as per HPI and Reports pelvic pain Musculoskeletal: Musculoskeletal: Reports no additional musculoskeletal complaints and Reports as per HPI Integumentary/Breasts: Skin/Breast: Reports system reviewed and no additional complaints, except as docu and Reports as per HPI Neurologic: Reports system reviewed and no additional complaints, except as documented, Reports as per HPI, Reports dizziness, Reports syncope, Reports headache(s) and Reports seizure-like activity Psychiatric: Psychiatric: Reports no additional psychiatric complaints and Reports as per HPI Endocrine: Endocrine: Reports no additional endocrine complaints and Reports as per HPI Hematologic/Lymphatic: Hematologic/Lymphatic: Reports no additional hematologic/lymphatic complaints and Reports as per HPI Allergic/Immunologic: Allergic/Immunologic: Reports no additional allergic/immunologic complaints and Reports as per HPI PMFSH Past Medical History Medical History Elective x1 Vaginal delivery x3 Surgical History Surgical History No pertinent past surgical history Family History Family History Sibling Asthma Grandparent Diabetes mellitus Hypertension Mother Hypertension Heart disease Other No pertinent family history Social History Social History Smoking status: Never smoker Substance use: never Gender identity (if verbalized by the patient): Female Spiritual care concerns: No Agree to blood products: Yes Meds Home Medications and Allergies Home Medications Medication Instructions Recorded Confirmed Type prenat.vits,zack,kdx-prbs-uxans 1 tablet PO DAILY 03/17/22 07/01/22 History ferrous sulfate 325 mg (65 mg 325 mg PO DAILY #90 tabs 05/23/22 07/01/22 Rx iron) tablet Allergies Allergy/AdvReac Type Severity Reaction Status Date / Time No Known Allergies Allergy Verified 06/30/22 15:14 Vital Signs Vital Signs - 24 hr 07/01/22 18:59 07/01/22 19:01 07/01/22 19:15 Temperature Pulse Rate 94 91 93 Respiratory Rate Blood Pressure 105/88 1
--- NOTE | 2022-07-02 10:51 | P.PCNOB_ITS ---
OB - Delivery Note Procedure Delivery date: 07/02/22 Procedure: Patient is a 31-year-old now who presented to labor and delivery on the evening of 07/01/2022 in early labor. Patient was admitted and observed overnight during which she made progressive cervical change. Patient became uncomfortable and requested an epidural for pain management which was placed without difficulty. Patient experienced spontaneous rupture membranes at 4:32 a.m. Clear amniotic fluid was noted. Patient progressed on own, however, did require a small amount of Pitocin for labor augmentation. Patient was noted to be fully dilated at 9:15 a.m. Patient was prepped and draped for delivery. Pat ient was encouraged to push and found to be pushing well. At 9:38 a.m., patient delivered infant head atraumatically in BENITO presentation. Occiput restituted to maternal left side. With subsequent push, the 's neck, shoulders, and rest of body delivered without difficulty. Infant was crying spontaneously. 's nose and mouth were suctioned with bulb suction. was placed on maternal abdomen where care was assumed by awaiting nursing staff. Delayed cord clamping was performed for approximately 60 seconds. The cord was clamped and cut. A segment of cord was collected for cord gases. Cord blood was collected. The placenta was delivered spontaneously and intact. Uterine fundus was noted to be firm with massage. On inspection, no lacerations were noted. Estimated blood loss for entire delivery was 100 cc. The was a live-born female infant, Apgars 9 and 9, weighing 6 lbs. 9 oz. Both mother and baby doing well at the end of delivery. Events: Other (syncope) Delivery augmentation: Pitocin Delivery monitor: External FHT and External Uterine Route of delivery: Laceration Description: None Specimen: Yes (placenta and cord, cord blood, and cord gases) Quantitative Blood Loss (ml): 100 Anesthesia type: Epidural Disposition: Floor Complications: No immediate complications [place] Baby Date of : 07/02/22 Time of : 09:38 Weeks of gestation at delivery: 37 (37.4) gender: Female Weight (pounds): 6 Weight (ounces): 9 presentation: vertex position: Left Occiput Anterior Placenta delivery description: Spontaneous Cord Vessel Description: 3 Vessels score one minute: 9 score five minutes: 9 AMG Delivery Billing Delivery Delivery: Delivery Charge
[2022-07-02] MEDS: KETOROLAC 30 MG/ML VIAL (*BKC) IV PUSH (13:50)
[2022-07-02] MEDS: KETOROLAC 30 MG/ML VIAL (*BKC) (13:50)
[2022-07-02] MEDS: SODIUM CHLORIDE 0.9% IV 1,000 ML 125 ML IV CONT (13:50)
--- NOTE | 2022-07-02 13:50 | PC.NURSE ---
Called to pt room by Kimberly COOL to eval pt new onset of pain. Upon arrival to room pt crying, moaning, and c/o back pain that is radiating to her low abd as well as cramping since she got back from the bathroom. Called to relay new pt complaint. would like Anesthesia to come see pt.
--- NOTE | 2022-07-02 13:55 | PC.NURSE ---
TREASURY MANAGER called, report given and presence requested.
[2022-07-02] MEDS: SODIUM CHLORIDE 0.9% IV 1,000 ML 125 ML (14:00)
--- NOTE | 2022-07-02 14:05 | PC.NURSE ---
Kareen Roberson AUTOMOBILE OR TRUCK RENTAL DISPATCHER at bedside to eval. Orders rc'vd for pain meds, toradol also on board.
[2022-07-02] MEDS: fentaNYL CITRATE INJ (*CRX) 100 MCG/2 ML VIAL (14:13)
--- NOTE | 2022-07-02 19:19 | PC.NURSE ---
[id number] Alerted by MARKETING TRAFFIC COORDINATOR that pt reports increased pain and is tearful and nauseated after returning from bathroom. Upon arriving to room, Pt laying on right side clutching bed rail, moaning and crying. States pain is in lower back radiating to abdomen. Fundus assess, firm at umbilicus, bleeding small rubra. Perineum intact and no edema or hematoma noted. Pt returns to right side lying postion. Epidural site covered with bandaid. Extreme tenderness noted upon palpation to lower aspect of epidural site, pt screams out in pain. Zofran given during this time. Toradol 30 mg. given IV as well. Yazmin Garduno, RN called to room to assist with evaluation due to RN laboring with patient and removing epidural catheter. Dr. Huang notified. Anesthesia presence requested. Anesthesia evaluated. Orders received 50mcg Fentanyl may be repeated X2 doses if needed. After first dose visible change in patient noted. Pt relaxed with eyes closed. When evaluated, pt does request second dose of fentanyl. Given and pt states pain is much better and is dozing. Dr. Huang called and updated on condition.
[2022-07-02] MEDS: IBUPROFEN 600 MG TABLET PO (19:24)
[2022-07-03 00:44] VITALS: BP 115/69; PULSE 86; RESP 16; TEMP 36.7; O2SAT 100
[2022-07-03] MEDS: DOCUSATE SODIUM 100 MG CAPSULE PO (03:24)
[2022-07-03 03:33] VITALS: BP 122/75; PULSE 86; RESP 18; TEMP 36.8
[2022-07-03 03:53] LABS: Hematocrit 34.4 % (37.0-47.0); Hemoglobin 11.2 g/dL (12.0-15.0)
[2022-07-03] MEDS: MULTIVIT/MIN/PREN/FOL AC/IRON TABLET 1 TAB PO (07:30)
[2022-07-03] MEDS: IBUPROFEN 600 MG TABLET PO (07:30)
[2022-07-03 08:15] VITALS: BP 98/57; PULSE 80; RESP 16; TEMP 36.4; O2SAT 100
--- NOTE | 2022-07-03 08:33 | P.PNOB_ITS ---
OB - PN: Subj Subjective Date/time seen: 07/03/22 08:34 Patient comments: pain well controlled, tolerating diet and other (Decreasing lochia.) baby status: doing well and nursing well Narrative: she is doing well baby is doing well. She has switched to bottle feeding due to the cramping associated with the breast-feeding. She is ambulating well has adequate pain control lochia decreased. Tolerating r egular food. OB - PN: Obj Data Labs CBC & Chem 7: 07/03/22 03:28 Labs: Laboratory Results - last 24 hr 07/03/22 03:28 Hgb 11.2 L Hct 34.4 L OB - PN A/P Assessment and Plan (1) Delivery normal: Code(s): O80 - Encounter for full-term uncomplicated delivery Status: Acute Plan Normal exam. Doing well. She desires discharge. Discharge precautions discussed. Will discharge home today. Plan day: 1 Plan: routine care Comments: Patient doing well. Will discharge home today. Time Spent With Patient Time: Total time spent is greater than 50% in coordination of care (as documented) at patient's floor/unit and/or counseling patient: Exam Psych: Affect: normal affect Other: Abd: fundus firm below umbilicus, nontender Perineum: healing Ext: nontender
[2022-07-03] MEDS: ACETAMINOPHEN 325 MG TABLET 650 MG PO (12:22)
[2022-07-03 14:41] LABS: Rapid Plasma Reagin Non-Reactive (NonReactive)
--- NOTE | 2022-07-24 22:17 | PM.OBDSVD ---
DS: Admitting Diagnosis Discharge Date 07/03/22 Admitting Diagnosis Active labor DS: Discharge Diagnosis Discharge Diagnosis (1) Delivery normal: Code(s): O80 - Encounter for full-term uncomplicated delivery Status: Acute OB - DS: Summary Hospital Course Hospital Course: Patient admitted in active labor. She had an uncomplicated vaginal delivery. She did well . She requested discharge home on day 1. OB Procedures : Ultrasound OB Procedures Intrapartum: Spontaneous Vag Delivery OB Procedures: : None Peripartum Data Delivery Method: Natural Vaginal Laceration Description: None Status at Discharge Functional status at discharge: independent ambulation Time Spent with Patient Time attestation: Total time spent providing and/or coordinating discharge services: Exam Const: General: cooperative Orientation/consciousness: oriented to person, oriented to place and oriented to time HENMT: General nose exam: Normal external nose present Eyes: General: appearance normal, both eyes and all related structures Resp: Effort & Inspection: normal respiratory effort GI: Inspection: normal to inspection Skin: General skin exam: normal color Neuro: General: oriented to person, oriented to place and oriented to time Extrem: General: normal to inspection and no calf tenderness Psych: Appearance: grossly normal Mental Status: mental status grossly normal DS: Data Data Completed and Pending Completed studies during hospitalization: Pending at discharge 07/02/22 09:42 Surgical [PTH] Routine Discharge Plan Discharge Attending physician on discharge: Brigitte Huang Consulting providers: Opal Bonner Discharging Clinician: Duglas Jovel Anticipated Discharge Date/Time: 07/03/22 10:00 Patient Disposition: Home, Self-Care Activity: may shower and pelvic rest Diet: regular Discharge Instructions: Education: Mom and Baby Guide Given to: Mother Follow-Up: Call your delivering provider's office for an appointment to be seen in: 6 Weeks Mom and baby should come to the [facility] for the follow-up appointment. Appointment Date/Time: July 05, 2022 at 10:00 am What to expect at your follow-up visit: Blood Pressure Check Physical Assessment Call [phone] if you are unable to keep your appointment time. BREAST CARE: * Wear a snug supportive bra. * For engorgement discomfort: Breast Feeding: * Apply warm moist washcloths * Express milk as needed to relieve engorgement * Wear loose clothing Bottle Feeding: * May apply ice packs * For sore nipples: * Identify correct latch-on * Apply warm moist washcloths before and after nursing * Air dry nipples after nursing * May apply Lansinoh cream to nipples EPISIOTOMY/PERINEAL CARE: * Until bleeding stops, use your lluvia bottle after urinating * Change your pad frequently throughout the day * You may take sitz baths several times a day (fill your bathtub with warm water and soak for 20 minutes.) Do NOT bathe in the water * No tub baths until seen by your physician - You may shower ACTIVITY: * Rest as much as possible. * Do not exercise or lift anything heavier than your baby (such as laundry or other children.) * Avoid stairs or driving as much as possible. * Do not put anything into the vagina. No douching, tampons, or sexual activity until seen by physician. NOTIFY PHYSICIAN IF YOU HAVE ANY QUESTIONS OR IF ANY OF THE FOLLOWING SYMPTOMS OCCUR: * If your episiotomy or incision becomes red, swollen, or more painful than what you have experienced in the hospital. * If your vaginal bleeding becomes foul smelling. * If your vaginal bleeding becomes more heavy than a period or if your bleeding changes from pink to bright red. However, you may pass an occasional walnut-sized clot once or twice
== END 2022-07-03 12:30 | disposition home or self-care (01) | DRG 560 ==
LOC: ANHOB2 07-03 09:39 → ANHLDR 07-05 10:33
PROVIDERS: Admitting Provider Student in an Organized Health Care Education/Training Program; Visit Provider Obstetrics & Gynecology
DX: O80 Encounter for full-term uncomplicated delivery (principal); Z3A.37 37 weeks gestation of pregnancy; Z37.0 Single live birth
CPT/HCPCS: 36415; 85014; 85018; 85025; 86592; 86850; 86900; 86901; 88307; A9270; J1885; J2405; J2590; J2795; J3010; J7030; J7120

== ENCOUNTER 2022-07-08 20:39 | Emergency (ER) | payer OTHER, SELFPAY ==
--- NOTE | ~2022-07-08 | CT_ITS ---
EXAMINATION: CT abdomen pelvis w con INDICATION: Diffuse abdominal pain, one week TECHNIQUE: Computed tomographic images of the abdomen and pelvis were obtained after the administrati on of 100 cc of Omnipaque 350 intravenous contrast. The dose-length product (DLP) was 832.52 mGy-cm. Automated exposure control and iterative reconstruction technique were employed. COMPARISON: None available FINDINGS: Minimal dependent atelectasis is present in the lung bases. The heart size is normal. The l iver, spleen, pancreas, gallbladder, and adrenal glands are normal. There is punctate nonobstructing bilateral nephrolithiasis. No stones are present in the ureters or bladder. The uterus is enlarged, c onsistent with state. No pathologically enlarged abdominal or pelvic lymph nodes are ident ified. There is no free intraperitoneal gas or evidence of bowel obstruction. IMPRESSION: 1. No CT correlate for the patient's symptoms. 2. Enlarged uterus, consistent with state. 3. Punctate nonobstructing bilateral nephrolithiasis. Reviewed, dictated and finalized at location A.
[2022-07-08 20:41] VITALS: BP 146/85; PULSE 86; RESP 18; TEMP 37.1; O2SAT 100
--- NOTE | 2022-07-08 20:51 | ED.GENADULT ---
HPI - General Adult General Chief complaint: CHICKEN FANCIER Stated complaint: Abd pain,vaginal delivery on 07/02/22, vag bleed. Time Seen by Provider: 07/08/22 20:45 History of Present Illness HPI narrative: 31-year-old female presents emergency room secondary to diffuse abdominal pain. She had a spontaneous vaginal delivery this past Sunday discharged home care on Sunday. She has some bleeding after delivery. She continues to have some bleeding and passing some clots from time to time. However over the last days she has developed severe diffuse abdominal pain. She cannot stand for her abdomen to be touched anywhere and hurts when she tries to move. States has had some chills but has not taken her temperature. No urinary complaints. No nausea vomiting. No diarrhea. This is her fourth child. Related Data Home Medications Medication Instructions Recorded Confirmed prenat.vits,zack,kco-tmuk-uwvur 1 tablet PO DAILY 03/17/22 07/01/22 Allergies Allergy/AdvReac Type Severity Reaction Status Date / Time No Known Allergies Allergy Verified 06/30/22 15:14 Review of Systems Review of Systems: CONSTITUTIONAL: Denies fever, chills, or sweats. EYES: Denies visual changes, redness, or discharge. ENT: Denies rhinorrhea, congestion, sore throat, or otalgia. CARDIOVASCULAR: Denies chest pain, palpitations, or edema. RESPIRATORY: Denies cough or dyspnea. GASTROINTESTINAL: Diffuse abdominal pain with no associated nausea vomiting diarrhea. GENITOURINARY: Denies dysuria or hematuria. Vaginal bleeding SKIN: Denies rash or itching. MUSCULOSKELETAL: Denies back pain, joint pain, or myalgia. NEUROLOGIC: Denies headache, numbness, or weakness. PSYCHIATRIC: Denies anxiety or depression. [facility] Past Medical History Medical History Elective x1 Vaginal delivery x3 Surgical History Surgical History No pertinent past surgical history Family History Family History Sibling Asthma Grandparent Diabetes mellitus Hypertension Mother Hypertension Heart disease Other No pertinent family history Social History Social History Smoking status: Never smoker Substance use: never Gender identity (if verbalized by the patient): Female Spiritual care concerns: No Agree to blood products: Yes Exam Narrative: APPEARANCE: Patient noted be in moderate distress secondary to pain Head Normocephalic and atraumatic. EYES: PERRLA/EOMI, conjunctivae clear. NOSE: Normal with no drainage EARS:TMS clear with Thompson, with good light reflex. THROAT: Pharynx clear, no exudate. NECK: Supple. No adenopathy, no masses. RESPIRATORY: Airway patent, respirations nonlabored. Clear to auscultation bilaterally, no rales, rhonchi, wheezing. CARDIOVASCULAR: Regular rate and rhythm without murmurs, rubs, or gallops. ABDOMINAL: Soft, tenderness to palpation any portion of the abdomen. No rigidity. Musculoskeletal: Moves all extremities. Strength/ROM intact, No edema, No calf tenderness. NEURO: Alert. Cranial nerves II through XII intact. Normal gait. Good coordination. Nonfocal examination. SKIN:: Warm, dry. Normal Color PSYCHIATRIC: Normal affect/mood, normal interaction PELVIC: Minimum vaginal bleeding is noted. No clots are noted in the vaginal vault. Uterus is slightly boggy but not exquisitely tender. Course Vital Signs Vital signs: Vital Signs Temperature 98.7 F 07/08/22 20:41 Pulse Rate 86 07/08/22 20:41 Respiratory Rate 18 07/08/22 20:41 Blood Pressure 146/85 H 07/08/22 20:41 Pulse Oximetry 100 07/08/22 20:41 Oxygen Delivery Room Air 07/08/22 20:41 Temperature 98.7 F 07/08/22 20:41 Pulse Rate 86 07/08/22 20:41 Respiratory Rate 18 07/08/22 20:41 Blood Pressure 146/85 H 07/08/22 20:41 Pu
[2022-07-08 21:09] LABS: Eosinophils Percent Auto 0.2 % (0-4.4); Hematocrit 36.7 % (37.0-47.0); Hemoglobin 12.1 g/dL (12.0-15.0); Immature Granulocyte Absolute 0.03 K/mm3 (0.00-0.031); Immature Granulocyte Percent A 0.7 % (0-0.5); Lymphocytes Absolute Auto 0.89 K/mm3 (0.9-3.2); Lymphocytes Percent Auto 20.1 % (18.3-44.2); Mean Corpuscular Hemoglobin 27.9 pg (26-34); Mean Corpuscular Volume 84.6 fl (80-100); Mean Platelet Volume 11.5 fl (7.4-10.4); Monocytes Absolute Auto 0.5 K/mm3 (0.1-0.6); Monocytes Percent Auto 10.6 % (2.6-8.5); Neutrophils Percent Auto 68.4 % (45.5-73.1); Platelet Count Result 204 k/mm3 (150-375); Red Blood Count 4.34 M/mm3 (4.2-5.4); Red Cell Distribution Width 13.3 % (11.5-14.5); White Blood Count 4.4 K/mm3 (4.5-10.0)
[2022-07-08 21:16] LABS: Appearance Urine Clear (Clear); Bilirubin Urine Negative (Negative); Blood Urine 3+ (Negative); Color Urine Yellow (Yellow); Glucose Urine UA Negative (Negative); Ketones Urine Negative (Negative); Leukocyte Esterase Ur 1+ LEU/UL (Negative); Nitrate Urine Negative (Negative); Protein Urine Negative (Negative); Specific Grav Ur 1.015 (1.001-1.035); Urobilinogen Urine 0.2 mg/dL (<2.0); pH Urine 6.5 (5.0-9.0)
[2022-07-08 21:21] LABS: Lactic Acid Reflex 0.6 mmol/L (0.7-2.0)
[2022-07-08 21:21] LABS: Add Urine Microscopic? YES; Bacteria Urine Trace /hpf; RBC Urine 0-2 /hpf (0-2); Squamous Epithelial Cell Urine Occasional /hpf (Few)
[2022-07-08 21:22] LABS: Alanine Aminotransferase 56 U/L (6-35); Albumin Level 3.8 g/dL (3.5-5.1); Alkaline Phosphatase 91 U/L (38-126); Anion Gap 7 mmol/L (8-16); Aspartate Amino Transferase 25 U/L (14-36); Bilirubin,Total 0.3 mg/dL (0.2-1.3); Blood Urea Nitrogen 13 mg/dL (7-17); Carbon Dioxide 26 mmol/L (22-30); Chloride 101 mmol/L (98-107); Estimated CRCL calculation 127 ml/min; Estimated Glomerular Filt Rate > 60; Glucose 77 mg/dL (65-110); Potassium 3.7 mmol/L (3.4-5.0); Sodium 134 mmol/L (137-145)
[2022-07-08 22:51] VITALS: BP 138/82; PULSE 76; RESP 18; O2SAT 98
== END 2022-07-08 22:55 | disposition home or self-care (01) ==
PROVIDERS: Emergency Provider Emergency Medicine
DX: O99.893 Other specified diseases and conditions complicating puerperium (principal); R10.9 Unspecified abdominal pain
CPT/HCPCS: 36415; 74177; 80053; 81001; 83605; 85025; 96374; 99284; J0131; Q9967